=== PATIENT | female | born 1975 | race Caucasian/White ===

== ENCOUNTER → 2017-04-10 | Outpatient (CLI) | payer BC ==
[~2017-04-10] MED LIST: BUPR200T2; DSY50; LRT5 PO; MEDLIST; MODA100T28; PARO1TAB29; [UNRECOGNIZED DRUG - OTHER]
== END | disposition home or self-care (01) ==
LOC: C.CPL 13:40
PROVIDERS: ATTEND Physician Assistant
DX: G35 Multiple sclerosis (principal)

== ENCOUNTER → 2017-04-10 | Outpatient (CLI) | payer BC ==
[~2017-04-10] MED LIST changes: +GADAVIST IV PRN
--- NOTE | 2017-04-10 13:24 | DIAGNOSTIC IMAGING REPORT ---
MRI OF THE BRAIN WITHOUT AND WITH IV CONTRAST CLINICAL HISTORY: Multiple sclerosis COMPARISON STUDY: 10/29/2015 TECHNIQUE: MRI of the brain was performed from the vertex to the skull base utilizing various T1 and T2 weighted sequences. Following the IV administration of 7 mL of Gadavist contrast, additional enhanced images were obtained. FINDINGS: Sagittal T1, axial diffusion, proton density and T2 weighted axial, 3-D FLAIR, and pre and post axial T1-weighted images were acquired. These were supplemented with post gadolinium coronal T1 weighted images. No intra or extra-axial mass lesions are visualized. Axial diffusion-weighted images reveal no evidence of acute or subacute infarction. There is no evidence of ventricular dilatation. Proton density T2-weighted and FLAIR images reveal several scattered foci of increased T2 and FLAIR signal within the white matter, most pronounced in the right frontal region. These are felt to remain stable. There is no pathologic enhancement. There are no abnormal flow voids. There is a stable small developmental venous anomaly within the right cerebellar hemisphere IMPRESSION: 1. No significant change in the scattered foci of increased T2 and FLAIR signal involving the periventricular and subcortical white matter 2. No evidence of pathologic plaque enhancement 3. Stable small developmental venous anomaly within the right cerebellar hemisphere Electronically signed by: Ashvin Kelley M.D. 04/10/2017 1:22 PM Dictated Date/Time: 04/10/2017 1:18 PM
--- NOTE | 2017-04-10 13:31 | DIAGNOSTIC IMAGING REPORT ---
CERVICAL SPINE COMBO CLINICAL HISTORY: 41 years-old Female presenting with MS. TECHNIQUE: Multisequence, multiplanar MR imaging of the cervical spine was performed before and after the administration of intravenous contrast. IV contrast: 7 mL of Gadavist. COMPARISON: None. FINDINGS: Localizer images: Unremarkable. Slight straightening of normal cervical lordosis secondary to dental degenerative changes. Disc osteophyte complex is noted from C3-4 through C6-7. Vertebral body heights, alignment, bone marrow signal intensity maintained. Mild intervertebral disc desiccation from C3-4 through C5-6. Disc osteophyte complex at C5-6 and correlation with uncovertebral hypertrophy results in moderate right and mild left neural foraminal narrowing. Remaining levels demonstrate no significant neural foraminal narrowing. At C5-6, there is also mild effacement of the ventral thecal sac without spinal cord impingement. Cervical spinal cord maintains normal morphology. Apparent focal hyperintensity within the right anterior aspect of the cord at C4 extending from the C3-4 disc space to the C4-5 disc space. Additional foci of signal abnormality in the left anterior cervical cord at the level of C6 and C7. Postcontrast imaging demonstrates no focal enhancing lesion. Craniocervical junction normal. Paraspinal soft tissues within normal limits. IMPRESSION: 1. Multilevel degenerative changes in the mid to lower cervical region with moderate right and mild left neural foraminal narrowing at C5-6. 2. Multiple foci of abnormal signal intensity within the cervical spinal cord, which could be compatible with demyelinating disease. No evidence of abnormal enhancement to suggest active disease. Electronically signed by: Chapito Linares M.D. 04/10/2017 1:30 PM Dictated Date/Time: 04/10/2017 1:23 PM
== END | disposition home or self-care (01) ==
LOC: C.MRIBC 11:13
PROVIDERS: ATTEND Physician Assistant
DX: G35 Multiple sclerosis (principal); E55.9 Vitamin D deficiency, unspecified

== ENCOUNTER → 2017-06-22 | Outpatient (CLI) | payer BC ==
[~2017-06-22] MED LIST changes: -GADAVIST IV PRN
== END | disposition home or self-care (01) ==
LOC: C.CPL 14:35
PROVIDERS: ATTEND Psychiatry & Neurology Neurology
DX: G35 Multiple sclerosis (principal)

== ENCOUNTER → 2018-01-17 | Outpatient (CLI) | payer OTHER ==
--- NOTE | 2018-01-17 15:07 | MAMMOGRAPHY REPORT ---
BILATERAL DIGITAL SCREENING MAMMOGRAM TOMOSYNTHESIS WITH CAD: 01/17/2018 CLINICAL HISTORY: Routine screening. Patient has no complaints. TECHNIQUE: Breast tomosynthesis in addition to standard 2D mammography was performed. Current study was also evaluated with a Computer Aided Detection (CAD) system. COMPARISON: Comparison is made to exams dated: 04/30/2015 ultrasound, 04/14/2015 mammogram - [facility], 07/18/2008, and 07/18/2008 mammogram - [facility]. BREAST COMPOSITION: The tissue of both breasts is extremely dense, which lowers the sensitivity of m ammography. FINDINGS: The parenchymal pattern is unchanged. No developing mass, architectural distortion or clus ter of suspicious microcalcifications is seen in either breast. IMPRESSION: ACR BI-RADS CATEGORY 2: BENIGN There is no mammographic evidence of malignancy. A 1 year screening mammogram is recommended. The pa tient will receive written notification of the results. Approximately 10% of breast cancers are not detected with mammography. A negative mammographic report should not delay biopsy if a clinically suggestive mass is present. Shanique Ravi M.D. ay/:01/17/2018 14:30:03 Pattern Checker: Lisa ISIDRO)(Deepa), [facility] letter sent: Normal 1/2 BI-RADS Code: ACR BI-RADS Category 2: Benign
== END | disposition home or self-care (01) ==
LOC: C.MAMM 13:18
PROVIDERS: ATTEND Obstetrics & Gynecology
DX: Z12.31 Encounter for screening mammogram for malignant neoplasm of breast (principal)